=== PATIENT | male | born 1965 ===

== ENCOUNTER 2021-06-17 10:00 | Outpatient (CLI) | payer OTHER | END 2021-06-17 10:15 | disposition home or self-care (01) | LOC: PPH VACUNA 10:00 | PROVIDERS: ATTEND Emergency Medicine Pediatric Emergency Medicine | DX: Z23 Encounter for immunization (principal) ==

== ENCOUNTER 2022-01-08 08:00 | Outpatient (CLI) | payer OTHER | END 2022-01-08 08:30 | disposition home or self-care (01) | LOC: PPH VACUNA 08:00 | PROVIDERS: ATTEND Emergency Medicine Pediatric Emergency Medicine | DX: Z23 Encounter for immunization (principal) ==

== ENCOUNTER 2022-09-10 13:34 | Outpatient (CLI) | payer OTHER | END 2022-09-10 13:44 | disposition home or self-care (01) | LOC: PPH VACUNA 13:34 | PROVIDERS: ATTEND Emergency Medicine Pediatric Emergency Medicine | DX: Z23 Encounter for immunization (principal) ==